=== PATIENT | female | born 1960 | race Caucasian/White ===

== ENCOUNTER 2017-07-20 09:20 | Day surgery (SDC) | payer OTHER ==
[~2017-07-20 09:20] MED LIST: EPHEDrine SULFATE 50 MG/5 ML SYG
[2017-07-20 11:05] LABS: ADD MAN DIFF? NO
[2017-07-20 11:19] LABS: WHITE BLOOD COUNT 9.8 10^3/ul (4.8-10.8)
[2017-07-20 11:19] LABS: BASOPHIL # 0.1 10^3/ul (0.0-0.1); BASOPHILS % 0.6 % (0.0-2.0); EOSINOPHILS # 0.2 10^3/ul (0.0-0.5); EOSINOPHILS % 2.2 % (0.0-7.0); HEMATOCRIT 46.7 % (37.0-47.0); HEMOGLOBIN 16.4 g/dl (12.0-16.0); LYMPHOCYTES # 3.2 10^3/ul (0.8-2.9); LYMPHOCYTES % 32.7 % (15.0-51.0); MEAN CORPUSCULAR HEMOGLOBIN 31.5 pg (29.0-33.0); MEAN CORPUSCULAR HGB CONC 35.1 g/dl (32.0-37.0); MEAN CORPUSCULAR VOLUME 89.6 fl (82.0-101.0); MEAN PLATELET VOLUME 10.2 fl (7.4-10.4); MONOCYTE # 0.6 10^3/ul (0.3-0.9); MONOCYTES % 6.2 % (0.0-11.0); NEUTROPHIL # 5.7 10^3/ul (1.6-7.5); PLATELET COUNT 262 10^3/UL (140-415); RED BLOOD COUNT 5.21 10^6/ul (4.20-5.40); RED CELL DISTRIBUTION WIDTH 11.9 % (11.5-14.5)
[2017-07-20] MEDS: VANCOMYCIN 1 GM 250 ML IVPB (11:20)
[2017-07-20] MEDS: SOD CHLORIDE 0.9% 1,000 ML IV (11:24)
[2017-07-20 11:35] LABS: ALANINE AMINOTRANSFERASE 32 IU/L (13-69); ALBUMIN 4.3 g/dl (3.3-4.9); ALKALINE PHOSPHATASE 88 IU/L (42-121); ANION GAP 13 (8-16); ASPARTATE AMINO TRANSFERASE 19 IU/L (15-46); BILIRUBIN,INDIRECT 0.2 mg/dl (0-1.1); BILIRUBIN,TOTAL 0.2 mg/dl (0.2-1.3); CARBON DIOXIDE 24 mmol/L (21-31); CHLORIDE 110 mmol/L (97-110); GLUCOSE 103 mg/dl (70-220); INR 0.94; PROTIME 12.7 Sec (11.9-14.9); TOTAL PROTEIN 7.6 g/dl (6.1-8.1)
[2017-07-20 11:43] LABS: BLOOD UREA NITROGEN 20 mg/dl (7-20); CALCIUM 9.9 mg/dl (8.4-10.2); CREATININE 0.61 mg/dl (0.44-1.00); POTASSIUM 4.3 mmol/L (3.5-5.1); SODIUM 143 mmol/L (135-144)
[2017-07-20] MEDS ORDERED: FENTAnyl 50 MCG/ML VIAL (12:24)
[2017-07-20] MEDS ORDERED: PROPOFOL 20 ML (12:24)
[2017-07-20] MEDS ORDERED: MIDAZOLAM 1 MG/ML 2 ML INJ (12:25)
[2017-07-20] MEDS ORDERED: LIDOCAINE 1% (MDV) 20 ML INJ (12:25)
[2017-07-20] MEDS ORDERED: PHENYLephrine (100 MCG/ML) 5ML SYG (12:43)
[2017-07-20] MEDS ORDERED: DEXAMETHASONE 4 MG/ML 1 ML INJ (12:43)
[2017-07-20] MEDS ORDERED: ONDANSETRON 4 MG INJ (12:43)
[2017-07-20] MEDS: BUPIVACAINE 0.5% (SDV) 30 ML INJ (12:51)
[2017-07-20] MEDS ORDERED: LIDOCAINE 100 MG SYRINGE (13:26)
[2017-07-20] MEDS ORDERED: ACETAMINOPHEN 1000MG/100ML IV 100 ML (13:26)
[2017-07-20] MEDS ORDERED: METOCLOPRAMIDE 10 MG INJ (13:42)
[2017-07-20] MEDS ORDERED: PROCHLORPERAZINE 10 MG INJ IV (14:00)
[2017-07-20] MEDS ORDERED: ALBUTEROL 0.083% (NEB) 2.5 MG/3 ML AMP HHN (14:00)
[2017-07-20] MEDS ORDERED: KETOROLAC 15 MG INJ IV (14:00)
[2017-07-20] MEDS ORDERED: FENTAnyl 50 MCG/ML VIAL IV ×3 (14:00)
[2017-07-20] MEDS ORDERED: ONDANSETRON 4 MG INJ IV (14:00)
[2017-07-20] MEDS ORDERED: TRIMETHOBENZAMIDE 100 MG/ML VIAL IM (14:00)
[2017-07-20] MEDS: METOCLOPRAMIDE 10 MG INJ IV (14:17)
== END 2017-07-20 14:25 | disposition home or self-care (01) ==
LOC: SDS 09:20
DX: C43.30 Malignant melanoma of unspecified part of face (principal); E03.9 Hypothyroidism, unspecified; J45.909 Unspecified asthma, uncomplicated
CPT/HCPCS: 14040; 71045; 80053; 85025; 85610; 85730; 88305; 88341; 88342; 93005